=== PATIENT | male | born 2000 | race Caucasian/White ===

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

== ENCOUNTER → 2022-04-23 14:11 | Outpatient (CLI) | payer BC, SELFPAY ==
--- NOTE | 2022-04-23 14:55 | MR_ITS ---
FINAL REPORT TECHNIQUE: Multiplanar and multisequence imaging of the brain was obtained without contrast. CLINICAL HISTORY: frequent headache, worsening headaches, eye twitch.MIGRAINE HEADACHE [id number]. BLURRED VISION. FINDINGS: The gyri and sulci are within normal limits for age. There is no mass effect or midline shift. The ventricles are symmetric in size and configuration without hydrocephalus. There are no areas of abnormal signal intensity. The cerebellum and brainstem have a normal appearance. There are no areas of restricted diffusion on diffusion weighted images to suggest acute infarct. Soft tissues are without acute abnormality. IMPRESSION: No acute intracranial abnormality. Reviewed, Interpreted and Dictated by Shira Wilkins MD Transcribed by Marina Falk Authenticated and [facility]
[2022-04-23 15:26] LABS: Basophils % 0.3 % (0.1-2.0); Eosinophils % 0.6 % (0.1-12.0); Hematocrit 39.2 % (42.0-52.0); Hemoglobin 13.8 g/dL (14.1-18.0); Lymphocytes # 1.2 K/mm3 (0.7-4.5); Lymphocytes % 32.8 % (10-50); Mean Corpuscular HGB Conc 35.3 g/dL (31.8-35.4); Mean Corpuscular Hemoglobin 28.9 pg (27.0-31.2); Mean Corpuscular Volume 81.9 fl (80-94); Mean Platelet Volume 7.8 fl (7.4-10.4); Monocytes # 0.2 K/mm3 (0.1-1.0); Monocytes % 6.4 % (1.7-9.3); Neutrophils # 2.2 K/mm3 (1.8-7.8); Neutrophils % 59.9 % (37.0-80.0); Platelet Count 243 K/mm3 (142-424); Red Blood Count 4.78 M/mm3 (4.60-6.20); Red Cell Distribution Width 13.3 % (11.5-17.5); White Blood Count 3.7 K/mm3 (4.5-13.0)
[2022-04-23 15:44] LABS: Alanine Aminotransferase 13 U/L (12-78); Albumin Level 4.3 g/dl (3.5-5.0); Alkaline Phosphatase 55 U/L (38-126); Aspartate Amino Transferase 20 U/L (17-59); Bilirubin,Total 0.2 mg/dl (0.2-1.3); Blood Urea Nitrogen 14 mg/dl (9-20); Calcium 9.1 mg/dl (8.4-10.2); Carbon Dioxide 30 mmol/L (22.0-30.0); Chloride 105 mmol/L (98-107); Estimated Glomerular Filt Rate 86 ml/min (>60); GFR (African American) 104 ML/MIN (>60); Globulin 2.1 g/dL (1.3-3.2); Glucose 57 mg/dl (74-100); Sodium 141 mmol/L (136-145); Total Protein,Serum 6.4 g/dl (6.3-8.2)
[2022-04-23 16:15] LABS: Thyroid Stimulating Hormone 0.76 uIU/mL (0.465-4.68)
[2022-04-23 16:51] LABS: Vitamin B12 250 pg/mL (239-931)
[2022-04-23 16:56] LABS: Folate 4.86 ng/mL
[2022-04-25 08:25] LABS: Ceruloplasmin 16.3 mg/dL (16.0-31.0)
== END ==
PROVIDERS: PCP Family Medicine; Visit Provider Nurse Practitioner Family
DX: R51.9 Headache, unspecified (principal); F39 Unspecified mood [affective] disorder; G89.29 Other chronic pain; R25.3 Fasciculation
CPT/HCPCS: 36415; 70551; 80053; 82390; 82607; 82746; 84443; 85025; G0399

== ENCOUNTER → 2022-08-15 20:01 | Outpatient (CLI) | payer BC, SELFPAY | PROVIDERS: PCP Family Medicine; Visit Provider Nurse Practitioner Family | DX: G47.30 Sleep apnea, unspecified (principal); R06.83 Snoring; R40.0 Somnolence; R51.9 Headache, unspecified | CPT/HCPCS: 95810 ==

== ENCOUNTER 2023-07-27 10:29 | Emergency (ER) | payer BC, SELFPAY ==
[2023-07-27 10:30] VITALS: BP 112/69; PULSE 59; RESP 19; TEMP 36.7; O2SAT 98; BMI 22.4
[2023-07-27 11:10] LABS: UTC Strep Screen (Rapid) Negative (Negative)
--- NOTE | 2023-07-27 11:24 | EXP.UTC ---
Discharge Plan Disposition Patient Disposition: Home, Self-Care Condition: Good Prescriptions Prescriptions: New fluticasone propionate [Flonase Allergy Relief] 50 mcg/actuation spray,suspension 1 spray intranasal DAILY Qty: 16 0RF Rx Instructions: administer into each nostril No Action fluoxetine [Prozac] 20 mg capsule 80 mg PO DAILY mirtazapine 15 mg tablet See Rx Instructions .ROUTE .COMPLEX Rx Instructions: 80mg daily; cyproheptadine 4 mg tablet 4 mg PO HS 90 Days Qty: 90 1RF Referrals Follow up/Referrals: Kaykay Villalba MD [Primary Care Provider] - See instructions Activity Restrictions/Add. Instructions Additional Instructions/Restrictions: No sign of a bacterial infection. Likely viral. Viruses can take 7-14 days to run their course. Nasal saline and bulb syringe or nose Tiana to remove nasal drainage to help with nasal congestion. Hard to eat, drink, sleep with nasal congestion so important to keep this cleaned out. Monitor temp. Tylenol or Motrin as needed for pain or fever Encourage fluids, water, Gatorade, Powerade, Pedialyte if /toddler/child Warm salt water gargles Warm fluids Sore throat lozenges Sleep elevated Humidifier/vaporizer Follow-up immediately for new or worsening symptoms or no noticeable improvement over the next 48-72 hours. Clinical Impressions Clinical Impression: Upper respiratory infection, viral Instructions Patient Instructions: DI for Viral Upper Respiratory Infection -- Adult Discharge ED Provider: Nader ([facility])Izzy [facility] HPI General Stated complaint: sore throat Mode of Arrival: Ambulatory Source of Information: Patient Limitations: No Limitations Time Seen by Provider: 07/27/23 11:24 Description of Symptoms (Recalled from Triage Doc. by RN): Sore throat, ALEXANDER HEENT Symptoms (Recalled from RN notes): Yes Resp Symptoms (Recalled from RN notes): No Skin Symptoms (Recalled from RN notes): No MS Symptoms (Recalled from RN notes): No Functional Status (Recalled from RN notes): n/a History of Present Illness Provider Complaint: 23 yr old male presents for nasal congestion, sore throat, alexander Related Data Home Medications Medication Instructions Recorded Confirmed fluoxetine 20 mg capsule (Prozac) 80 mg PO DAILY 09/03/22 07/27/23 mirtazapine 15 mg tablet See Rx Instructions .Route .COMPLEX 09/03/22 07/27/23 Previous Rx's Medication Instructions Recorded cyproheptadine 4 mg tablet 4 mg PO HS headache prevention per 09/03/22 [employer] 90 days #90 tabs fluticasone propionate 50 1 spray intranasal DAILY #16 grams 07/27/23 mcg/actuation nasal spray,suspension (Flonase Allergy Relief) Allergies Allergy/AdvReac Type Severity Reaction Status Date / Time Penicillins Allergy Verified 07/27/23 10:51 Worker's Comp Is this a Worker's Comp case?: No [facility] Disclaimer: The information contained in this section may have been updated after the patient was seen, as this information can be updated by other users. 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) Smoking Status: Never smoker alcohol intake: never substance use type: denies use current occupational status: student Travel in the last 8 weeks: None household members: family housing: house ROS Obtained: Yes All systems reviewed & no additional complaints except as documented Constitutional Constitutional: Reports system reviewed and no additional complaints, except as documented, Reports as per HPI and Reports headache(s) Eyes Eyes: Reports system reviewed and no additional complaints, except as documented ENT Ears, Nose, Mouth, and Throat: Reports system reviewed and no additional complaints, except as documented, Reports as per HPI, Reports headache(s), Reports nasal congestion, Reports nasal di
[2023-07-27 11:33] VITALS: BP 112/69; PULSE 59; RESP 18; TEMP 36.7; O2SAT 98
== END 2023-07-27 11:33 | disposition home or self-care (01) ==
PROVIDERS: Emergency Provider Nurse Practitioner Family; PCP Family Medicine
DX: R51.9 Headache, unspecified (principal); J06.9 Acute upper respiratory infection, unspecified; B34.9 Viral infection, unspecified
CPT/HCPCS: 87880; 99212; 99213; G0463

== ENCOUNTER 2024-01-09 15:04 | Emergency (ER) | payer BC, SELFPAY ==
[2024-01-09 15:05] VITALS: BP 150/91; PULSE 94; RESP 20; TEMP 36.7; O2SAT 99; BMI 16.5
--- NOTE | 2024-01-09 15:07 | ECG_ITS ---
APPROVED REPORT Exam: Resting ECG HR:83 bpm ECG Measurements Heart Rate 83 AXES AL 154 P 72 QRSd 120 QRS 95 QT 360 T 4 QTc 399 Conclusion SINUS RHYTHM BORDERLINE RIGHT AXIS DEVIATION [QRS AXIS > 90] POSSIBLE LEFT VENTRICULAR HYPERTROPHY [VOLTAGE CRITERIA PLUS LAE OR QRS WIDENING] NONSPECIFIC T-WAVE ABNORMALITY ABNORMAL ECG UNCONFIRMED REPORT Electronically signed by : ANTOINE MCCRAY, 01/10/2024 03:49:59
--- NOTE | 2024-01-09 15:10 | ED_ITS ---
Discharge Plan Disposition Patient Disposition: Home, Self-Care Condition: Good Prescriptions Prescriptions: New pantoprazole 40 mg tablet,delayed release (DR/EC) 40 mg PO DAILY 28 Days Qty: 28 0RF No Action fluoxetine [Prozac] 20 mg capsule 80 mg PO DAILY mirtazapine 15 mg tablet See Rx Instructions .ROUTE .COMPLEX Rx Instructions: 80mg daily; cyproheptadine 4 mg tablet 4 mg PO HS 90 Days Qty: 90 1RF fluticasone propionate [Flonase Allergy Relief] 50 mcg/actuation spray,suspension 1 spray intranasal DAILY Qty: 16 0RF Rx Instructions: administer into each nostril Referrals Follow up/Referrals: Provider,Referral, MD [Referring] - See instructions Activity Restrictions/Add. Instructions Additional Instructions/Restrictions: Please take the prescribed medication in the evening before bed. Please follow- up closely with your PCP as scheduled tomorrow. Return to the ER for any change or worsening in your symptoms as needed. Clinical Impressions Clinical Impression: Chest pain, non-cardiac Dysphagia Qualifiers: Dysphagia type: unspecified Qualified Code(s): R13.10 - Dysphagia, unspecified Stand Alone Forms Stand Alone Forms: Work/School Release Discharge ED Provider: Trav Ambriz General Adult HPI <FREDA Reyna - Last Filed: 01/09/24 16:06> General Chief complaint: Chest Pain Stated complaint: Chest Pain Time Seen by Provider: 01/09/24 15:10 History of Present Illness HPI narrative: Patient presents for 24 hours of substernal nonradiating chest pain. Patient rates the pain currently 8 out of 10 in the ER. Nothing makes it worse however lying flat makes it somewhat better. Patient denies any other constitutional symptoms including shortness of breath fever chills hemoptysis hematochezia melena nausea vomiting diarrhea. Patient does state that approximately 30 days ago he was diagnosed and has since recovered from influenza. Otherwise patient has past medical history positive for migraine headaches and seasonal allergies. Related Data Home Medications Medication Instructions Recorded Confirmed fluoxetine 20 mg capsule (Prozac) 80 mg PO DAILY 09/03/22 07/27/23 mirtazapine 15 mg tablet See Rx Instructions .Route .COMPLEX 09/03/22 07/27/23 Previous Rx's Medication Instructions Recorded cyproheptadine 4 mg tablet 4 mg PO HS headache prevention per 09/03/22 [facility] [employer] 90 days #90 tabs fluticasone propionate 50 1 spray intranasal DAILY #16 grams 07/27/23 mcg/actuation nasal spray,suspension (Flonase Allergy Relief) pantoprazole 40 mg tablet,delayed 40 mg PO DAILY 4 weeks #28 tabs 01/09/24 release Allergies Allergy/AdvReac Type Severity Reaction Status Date / Time Penicillins Allergy Verified 07/27/23 10:51 PFS <FREDA Reyna - Last Filed: 01/09/24 16:06> [facility] Disclaimer: The information contained in this section may have been updated after the patient was seen, as this information can be updated by other users. Family History , [employer]) Diabetes Cancer Social History , [employer]) Smoking Status: Never smoker alcohol intake: never substance use type: denies use current occupational status: student Travel in the last 8 weeks: None household members: family housing: house <FREDA Reyna - Last Filed: 01/09/24 16:06> ROS Obtained: Yes Systems reviewed as appropriate & no additional complaints except as documented Physical Exam <FREDA Reyna - Last Filed: 01/09/24 16:06> General General appearance: alert and in no apparent distress Head Head exam: atraumatic and normal inspection Eye Eye exam: Present normal appearance, PERRL and EOMI ENT ENT exam: Present normal exam, normal oropharynx and mucous membranes moist Neck Neck exam: Present normal inspection, full ROM and trachea midline; Absent lymphadenopathy Chest Chest inspection: Present normal inspection and symmetric chest wall rise Respiratory Respiratory exam: Present normal lung sounds bilaterally; Absent respiratory distress, wheezes or accessory muscle use Cardiovascular Cardiovascular exam: Present regular rate, normal rhythm, +S1, +S2 and other (Patient has slightly muffled heart sounds) Abdominal Exam Abdominal exam: Present soft and normal bowel sounds; Absent tenderness Extremities Exam Extremities exam: Present normal inspection and full ROM Back Exam Back exam: Present normal inspection and full ROM Neurological Exam Neurological exam: Present alert, oriented X3 and CN II-XII intact Psychiatric Psychiatric exam: Present normal affect and normal mood Skin Skin exam: Present warm, dry and normal color Medical Decision Making <FREDA Reyna - Last Filed: 01/09/24 16:06> Medical Records Medical records reviewed: Yes I reviewed the patient's medical records. [facility] Inquiry Pt receiving controlled substance: No Vital Signs: 01/09/24 15:05 01/09/24 15:35 01/09/24 15:59 Temperature 98.0 F 98.0 F Temperature Source Oral Oral Pulse Rate 90 74 Pulse Rate [Right Radial] 94 H Respiratory Rate 20 11 L 18 Blood Pressure 124/82 124/82 Blood Pressure [Right Arm] 150/91 H Blood Pressure Mean [Right Arm] 110 Blood Pressure Source Automatic Cuff Blood Pressure Source [Right Arm] Automatic Cuff Blood Pressure Position Supine Blood Pressure Position [Right Arm] Supine 02 Sat by Pulse Oximetry 99 100 Oxygen Delivery Method Room Air Room Air Room Air Lab Data Lab results reviewed: Yes I reviewed the patient's lab results. Lab Results 01/09/24 15:13: WBC 6.5, RBC 5.73, Hgb 16.1, Hct 47.7, MCV 83.2, MCH 28.0, MCHC 33.7, RDW 14.8, Plt Count 216, MPV 8.0, Neut % (Auto) 58.4, Lymph % (Auto) 35.6, [place] % (Auto) 4.2, Eos % (Auto) 0.8, Baso % (Auto) 1.1, Neut # (Auto) 3.8, Lymph # (Auto) 2.3, [place] # (Auto) 0.3, Eos # (Auto) 0.1, Baso # (Auto) 0.1, PT 11.6, INR 1.08, Sodium 142, Potassium 3.6, Chloride 103, Carbon Dioxide 30, Anion Gap 12.6, BUN 14, Creatinine 0.80, Estimated Creat Clear 105, Estimated GFR 122, Est GFR ( Amer) 148, Glucose 103 H, Calcium 9.9, Magnesium 2.2, Troponin I < 0.01 01/09/24 15:20: SARS-CoV-2 (PCR) Not detected, Influenza A Untype (PCR) Not detected, Influenza Type B (PCR) Not detected 01/09/24 15:13 01/09/24 15:13 Orders (Tests/Meds): ED MEDICATIONS Discontinued Medications Generic Name Dose Route Start Last Admin Trade Name Timbo PRN Reason Stop Dose Admin Acetaminophen 1,000 mg 01/09/24 15:15 01/09/24 15:32 Acetaminophen 1,000mg/100ml Vial IV 01/09/24 15:16 1,000 mg ONCE ONE Administration Belladonna Alkaloids 60 ml 01/09/24 15:27 01/09/24 15:32 Belladonna Alkaloids 60 Ml Ml PO 01/09/24 15:28 60 ml ONCE ONE Administration Ketorolac Tromethamine 15 mg 01/09/24 15:15 01/09/24 15:32 Ketorolac 30mg/Ml Vial IV 01/09/24 15:16 15 mg ONCE ONE Administration ORDERS Category Date Time Status Chest XR -- portable [XR chest portable] Stat Exams 01/09/24 15:15 Completed POCUS Point of Care (ER Only) Stat Exams 01/09/24 15:17 Completed BMP [Basic Metabolic Panel] Stat Lab 01/09/24 15:13 Completed CBC w/Auto Diff [Complete Blood Count Auto Diff] Stat Lab 01/09/24 15:13 Completed INR [Prothrombin Time INR] Stat Lab 01/09/24 15:13 Completed Magnesium Stat Lab 01/09/24 15:13 Completed Rapid PCR Covid and Flu A/B Stat Lab 01/09/24 15:20 Completed Trop I [Troponin I] Stat Lab 01/09/24 15:13 Completed HEART Score History (anamnesis): Moderately suspicious ECG: Non-specific disturbance Age: <45 years Risk factors: No known risk factors Medical Decision Narrative: In summary patient is a 23-year-old male who presents to the emergency department for evaluation of substernal nonradiating chest pain. Patient is hemodynamically stable upon arrival, afebrile. Physical exam is remarkable for slightly muffled heart sounds but otherwise is nonfocal. Differential diagnosis includes ACS versus myocarditis versus pericardial effusion versus pericarditis versus esophagitis or other gastrointestinal cause versus PE etc. Initial workup will be conducted with hematologic labs, [id number] ultrasound at the bedside, plain film chest x-ray serial troponins. Initial interventions include Toradol Tylenol. Initial workup reviewed by me shows that his hematologic labs are nonactionable, bedside echo did not show any acute processes, my informal interpretation of his plain film chest x-ray showed no acute intrathoracic processes.. Upon repeat evaluation I reinterviewed the patient and he reported near to complete abatement of his symptoms. I reinterviewed the patient regarding his symptoms regarding dysphagia particularly with dense foods or breads and he did report that he occasionally feels like things get stuck or that he has difficulty swallowing. He does not report a history of GERD. Differential is esophagitis versus stricture and likely needs evaluation by gastroenterology.. Given this discharged with a prescription for PPI and close follow-up with his PCP tomorrow. <Giovanna Christianson MD - Last Filed: 01/09/24 17:59> Vital Signs: 01/09/24 15:05 01/09/24 15:35 01/09/24 15:59 Temperature 98.0 F 98.0 F Temperature Source Oral Oral Pulse Rate 90 74 Pulse Rate [Right Radial] 94 H Respiratory Rate 20 11 L 18 Blood Pressure 124/82 124/82 Blood Pressure [Right Arm] 150/91 H Blood Pressure Mean [Right Arm] 110 Blood Pressure Source Automatic Cuff Blood Pressure Source [Right Arm] Automatic Cuff Blood Pressure Position Supine Blood Pressure Position [Right Arm] Supine 02 Sat by Pulse Oximetry 99 100 Oxygen Delivery Method Room Air Room Air Room Air Lab Data Lab Results 01/09/24 15:13: WBC 6.5, RBC 5.73, Hgb 16.1, Hct 47.7, MCV 83.2, MCH 28.0, MCHC 33.7, RDW 14.8, Plt Count 216, MPV 8.0, Neut % (Auto) 58.4, Lymph % (Auto) 35.6, [place] % (Auto) 4.2, Eos % (Auto) 0.8, Baso % (Auto) 1.1, Neut # (Auto) 3.8, Lymph # (Auto) 2.3, [place] # (Auto) 0.3, Eos # (Auto) 0.1, Baso # (Auto) 0.1, PT 11.6, INR 1.08, Sodium 142, Potassium 3.6, Chloride 103, Carbon Dioxide 30, Anion Gap 12.6, BUN 14, Creatinine 0.80, Estimated Creat Clear 105, Estimated GFR 122, Est GFR ( Amer) 148, Glucose 103 H, Calcium 9.9, Magnesium 2.2, Troponin I < 0.01 01/09/24 15:20: SARS-CoV-2 (PCR) Not detected, Influenza A Untype (PCR) Not detected, Influenza Type B (PCR) Not detected Orders (Tests/Meds): ED MEDICATIONS Discontinued Medications Generic Name Dose Route Start Last Admin Trade Name Timbo PRN Reason Stop Dose Admin Acetaminophen 1,000 mg 01/09/24 15:15 01/09/24 15:32 Acetaminophen 1,000mg/100ml Vial IV 01/09/24 15:16 1,000 mg ONCE ONE Administration Belladonna Alkaloids 60 ml 01/09/24 15:27 01/09/24 15:32 Belladonna Alkaloids 60 Ml Ml PO 01/09/24 15:28 60 ml ONCE ONE Administration Ketorolac Tromethamine 15 mg 01/09/24 15:15 01/09/24 15:32 Ketorolac 30mg/Ml Vial IV 01/09/24 15:16 15 mg ONCE ONE Administration ORDERS Category Date Time Status Chest XR -- portable [XR chest portable] Stat Exams 01/09/24 15:15 Completed POCUS Point of Care (ER Only) Stat Exams 01/09/24 15:17 Completed BMP [Basic Metabolic Panel] Stat Lab 01/09/24 15:13 Completed CBC w/Auto Diff [Complete Blood Count Auto Diff] Stat Lab 01/09/24 15:13 Completed INR [Prothrombin Time INR] Stat Lab 01/09/24 15:13 Completed Magnesium Stat Lab 01/09/24 15:13 Completed Rapid PCR Covid and Flu A/B Stat Lab 01/09/24 15:20 Completed Trop I [Troponin I] Stat Lab 01/09/24 15:13 Completed ECG Data Tracing #1: I reviewed this ECG and interpreted as documented below: ECG initial impression date: 01/09/24 ECG initial impression time: 15:09 ECG normal with no acute: arrhythmias, ischemia, conduction abnormalities, chamber hypertrophy Normal Sinus Rhythm: Yes Ischemic changes: t wave inversions (in aVF but no ST elevations that meet STEMI criteria.) Chamber hypertrophy present: other (High amplitude but likely due to patient's very thin body habitus.) HEART Score History (anamnesis): Slightly suspicious Troponin: </= normal limit HEART Score: 1 Medical Decision Narrative: In summary patient is a 23-year-old male who presents to the emergency department for evaluation of substernal nonradiating chest pain. Patient is hemodynamically stable upon arrival, afebrile. Physical exam is remarkable for slightly muffled heart sounds but otherwise is nonfocal. Differential diagnosis includes ACS versus myocarditis versus pericardial effusion versus pericarditis versus esophagitis or other gastrointestinal cause, among others. Low suspicion for PE as patient has PERC negative. Initial workup will be conducted with hematologic labs, [id number] ultrasound at the bedside, plain film chest x- ray serial troponins. Initial interventions include Toradol Tylenol. Initial workup reviewed by me shows that his hematologic labs are nonactionable, bedside echo did not show any acute processes, my informal interpretation of his plain film chest x-ray showed no acute intrathoracic processes.. Upon repeat evaluation I reinterviewed the patient and he reported near to complete abatement of his symptoms. I reinterviewed the patient regarding his symptoms regarding dysphagia particularly with dense foods or breads and he did report that he occasionally feels like things get stuck or that he has difficulty swallowing. He does not report a history of GERD. Differential is esophagitis versus stricture and likely needs evaluation by gastroenterology.. Given this discharged with a prescription for PPI and close follow-up with his PCP tomorrow. Attestation: I was consulted by the NAGI, and we discussed the complexity of the problems being addressed. I approved the treatment and management plan for this patient's care in the emergency department, thus performing a substantive portion of the medical decision making. I also independently obtained history and physical from the patient. Signed, Giovanna Christianson MD Procedures <Giovanna Crhistianson MD - Last Filed: 01/09/24 17:59> Limited Ultrasound Indication:: Chest pain Views:: parasternal long axis, parasternal short, apical 4. Saved on US machine. Findings:: Normal contractility. No pericardial effusion, no signs of right heart strain, RV:LV <1. Interpretation:: Normal limited cardiac ultrasound with no causes of acute chest pain identified on US exam. Disclaimer: POCUS exam performed independently by Giovanna Christianson MD and images saved to US machine. Critical Care <FREDA Reyna - Last Filed: 01/09/24 16:06> Critical Care Time Critical Care Time: No
--- NOTE | 2024-01-09 15:15 | XR_ITS ---
FINAL REPORT CLINICAL HISTORY: Chest pain COMPARISON: None FINDINGS: A single portable view of the chest was obtained. The heart size and pulmonary vascularity are within normal limits. The mediastinum is within normal limits. No acute pulmonary abnormality is identified. The bony thorax is intact. IMPRESSION: No active cardiopulmonary disease. Reviewed, Interpreted and Dictated by Gato Anguiano III, MD Transcribed by Cheryl Paula Authenticated and . [facility]
--- NOTE | 2024-01-09 15:25 | PC.NURSE ---
DR MCDONALD AT BEDSIDE
[2024-01-09 15:28] LABS: Coronavirus 19, PCR Not Detected (NotDetected); Influenza A, PCR Not Detected (NotDetected); Influenza B, PCR Not Detected (NotDetected)
[2024-01-09 15:28] LABS: Basophils # 0.1 K/mm3 (0-0.2); Basophils % 1.1 % (0.1-2.0); Eosinophils # 0.1 K/mm3 (0.0-0.4); Eosinophils % 0.8 % (0.1-12.0); Hematocrit 47.7 % (42.0-52.0); Hemoglobin 16.1 g/dL (14.1-18.0); Lymphocytes # 2.3 K/mm3 (0.7-4.5); Lymphocytes % 35.6 % (10-50); Mean Corpuscular HGB Conc 33.7 g/dL (31.8-35.4); Mean Corpuscular Volume 83.2 fl (80-94); Monocytes # 0.3 K/mm3 (0.1-1.0); Monocytes % 4.2 % (1.7-9.3); Neutrophils # 3.8 K/mm3 (1.8-7.8); Neutrophils % 58.4 % (37.0-80.0); Platelet Count 216 K/mm3 (142-424); Red Blood Count 5.73 M/mm3 (4.60-6.20); Red Cell Distribution Width 14.8 % (11.5-17.5); White Blood Count 6.5 K/mm3 (4.8-10.8)
--- NOTE | 2024-01-09 15:31 | PC.NURSE ---
XR AT BEDSIDE
[2024-01-09] MEDS: BELLADONNA ALKALOIDS 60 ML ML PO (15:32)
[2024-01-09] MEDS: ACETAMINOPHEN 1,000MG/100ML VIAL 1000 MG IV (15:32)
[2024-01-09] MEDS: KETOROLAC 30MG/ML VIAL 15 MG IV (15:32)
[2024-01-09 15:35] VITALS: BP 124/82; PULSE 90; RESP 11; O2SAT 100
[2024-01-09 15:36] LABS: Anion Gap 12.6 mEq/L (5-15); Blood Urea Nitrogen 14 mg/dl (9-20); Calcium 9.9 mg/dl (8.4-10.2); Carbon Dioxide 30 mmol/L (22.0-30.0); Chloride 103 mmol/L (98-107); Creatinine Clearance Estimated 105 mL/min (50-200); Estimated Glomerular Filt Rate 122 ml/min (>60); GFR (African American) 148 ML/MIN (>60); Glucose 103 mg/dl (74-100); Magnesium 2.2 mg/dl (1.6-2.3); Potassium 3.6 mmoL/L (3.5-5.1); Sodium 142 mmol/L (136-145)
[2024-01-09 15:37] LABS: INR 1.08 (0.9-1.1); Prothrombin Time 11.6 seconds (10.1-12.5)
[2024-01-09 15:49] LABS: Troponin I < 0.01 ng/ml (0.00-0.034)
[2024-01-09 15:59] VITALS: BP 124/82; PULSE 74; RESP 18; TEMP 36.7; O2SAT 98
== END 2024-01-09 16:09 | disposition home or self-care (01) ==
PROVIDERS: Physician Assistant; Emergency Provider Emergency Medicine; PCP Family Medicine
DX: R07.89 Other chest pain (principal); R13.10 Dysphagia, unspecified
CPT/HCPCS: 71045; 80048; 83735; 84484; 85025; 85610; 87636; 93005; 96374; 96375; 99284; J0131